=== PATIENT | male | born 1935 | race Caucasian/White ===

== ENCOUNTER 2016-09-29 20:38 | Inpatient (IN) | payer OTHER ==
[~2016-09-29] VITALS: Ht 180.3 cm; Wt 70.4 kg
[~2016-09-29 20:38] MED LIST: ARICEPT10 MG PO; ARICEPT5 MG PO; ASCORBIC ACID500 M3 PO; ASPIRIN E.C.81 M1 PO; ASPIRIN325 MG PO; CALCIUM CARB1 TABLET PO; DAILY MULTIPLE1 EACH PO; DOCUSATE SODIU100 MG PO; ENDOCET 5-3251 EACH PO; FLONASE16 G1 BOTH NARES; FLOVENT 44120 INHALA IH; IRON325 M1 PO; IRON45 MG PO; MEDROL DOSEPAK4 MG PO; SENNA-TIME S T1 EACH PO; SPIRIVA1 INHALATI IH
[2016-09-29 21:37] LABS: EOSINOPHIL (%) 1.3 % (0-5); EOSINOPHIL COUNT 0.1 K/uL (0-0.3); HEMATOCRIT 41.7 % (38.0-50.0); IMMATURE GRANULOCYTE (%) 0.5 % (0.0-0.7); IMMATURE GRANULOCYTE COUNT 0.1 K/uL; INSTRUMENT ABS NEUTROPHIL CT 8.5 K/uL; LYMPHOCYTE COUNT 1.7 K/uL (1.0-2.8); MCHC 32.9 G/DL (30.0-36.0); MCV 85.3 FL (86-99); MONOCYTE (%) 4.4 % (3-12); MONOCYTE COUNT 0.5 K/uL (0-0.8); NEUTROPHIL (%) 77.6 % (45-76); NEUTROPHIL COUNT 8.5 K/uL (1.8-6.4); PLATELET COUNT 267 K/uL (156-360); RBC DIS.WIDTH-SD 40.3 % (39-53); RED BLOOD COUNT 4.89 M/uL (4.00-5.50)
[2016-09-29 21:48] LABS: CHLORIDE 108 mEq/L (99-109); POTASSIUM 4.1 mEq/L (3.7-5.4); SODIUM 142 mEq/L (136-147)
[2016-09-29 21:50] LABS: GLUCOSE 144 mg/dL (70-99)
[2016-09-29 21:51] LABS: ANION GAP 10 MEQ/L (2-14)
[2016-09-29 21:53] LABS: GFR ESTIMATE (CALCULATED) 52 mL/min/
[2016-09-29 21:54] LABS: UREA NITROGEN (BUN) 28 mg/dL (9-23)
[2016-09-29] MEDS ORDERED: SPIRIVA1 INHALATI IH (22:20)
[2016-09-29] MEDS ORDERED: ASPIRIN325 MG PO (22:20)
[2016-09-29] MEDS ORDERED: DAILY VITAMIN1 EAC4 PO (22:21)
[2016-09-29] MEDS ORDERED: CELEXA10 MG PO (22:21)
[2016-09-29] MEDS ORDERED: ASMANEX HFA13 GM IH (22:21)
[2016-09-30] VITALS (7 sets, daily range): BP systolic 112–157; BP diastolic 61–80
[2016-09-30 08:22] LABS: EOSINOPHIL (%) 0 % (0-5); HEMATOCRIT 36.6 % (38.0-50.0); IMMATURE GRANULOCYTE (%) 0.5 % (0.0-0.7); IMMATURE GRANULOCYTE COUNT 0.1 K/uL; INSTRUMENT ABS NEUTROPHIL CT 10.7 K/uL; LYMPHOCYTE COUNT 1.3 K/uL (1.0-2.8); MCH 28.2 PG (29.0-34.0); MCHC 32.8 G/DL (30.0-36.0); MCV 86.1 FL (86-99); MEAN PLAT.VOLUME 9.3 uM^3 (9.0-12.4); MONOCYTE (%) 6.1 % (3-12); MONOCYTE COUNT 0.8 K/uL (0-0.8); NEUTROPHIL (%) 83.2 % (45-76); NEUTROPHIL COUNT 10.7 K/uL (1.8-6.4); PLATELET COUNT 260 K/uL (156-360); RBC DIS.WIDTH-CV 13.2 % (11.8-14.6); RBC DIS.WIDTH-SD 41.1 % (39-53); RED BLOOD COUNT 4.25 M/uL (4.00-5.50); WHITE BLOOD COUNT 12.9 K/uL (4.1-10.2)
[2016-09-30 08:45] LABS: ALKALINE PHOSPHATASE 68 IU/L (3-129); ANION GAP 7 MEQ/L (2-14); CHLORIDE 106 MEQ/L (99-109); GFR ESTIMATE (CALCULATED) 56 mL/min/; GLUCOSE 143 mg/dL (70-99); POTASSIUM 4.7 MEQ/L (3.7-5.4); SAMPLE HEMOLYSIS CHECK 0; SAMPLE ICTERIC CHECK 0; SAMPLE LIPEMIA CHECK 0; SODIUM 140 MEQ/L (136-147); TOTAL BILIRUBIN 0.5 MG/DL (0.0-1.0); UREA NITROGEN (BUN) 29 mg/dL (9-23)
[2016-10-01] VITALS (7 sets, daily range): BP systolic 120–154; BP diastolic 59–82
[2016-10-01 05:39] LABS: BASOPHIL COUNT 0.1 K/uL (0-0.1); EOSINOPHIL (%) 2.6 % (0-5); EOSINOPHIL COUNT 0.3 K/uL (0-0.3); HEMATOCRIT 35.8 % (38.0-50.0); IMMATURE GRANULOCYTE (%) 0.3 % (0.0-0.7); INSTRUMENT ABS NEUTROPHIL CT 8.8 K/uL; LYMPHOCYTE COUNT 2.2 K/uL (1.0-2.8); MCH 28.1 PG (29.0-34.0); MCHC 31.8 G/DL (30.0-36.0); MCV 88.4 FL (86-99); MEAN PLAT.VOLUME 9.5 uM^3 (9.0-12.4); MONOCYTE (%) 7.1 % (3-12); MONOCYTE COUNT 0.9 K/uL (0-0.8); NEUTROPHIL (%) 71.4 % (45-76); NEUTROPHIL COUNT 8.8 K/uL (1.8-6.4); PLATELET COUNT 230 K/uL (156-360); RBC DIS.WIDTH-CV 13.5 % (11.8-14.6); RBC DIS.WIDTH-SD 43.9 % (39-53); RED BLOOD COUNT 4.05 M/uL (4.00-5.50); WHITE BLOOD COUNT 12.3 K/uL (4.1-10.2)
[2016-10-01 06:06] LABS: ANION GAP 9 MEQ/L (2-14); CHLORIDE 108 MEQ/L (99-109); GFR ESTIMATE (CALCULATED) 56 mL/min/; GLUCOSE 131 mg/dL (70-99); POTASSIUM 4.2 MEQ/L (3.7-5.4); SAMPLE HEMOLYSIS CHECK 0; SAMPLE ICTERIC CHECK 0; SAMPLE LIPEMIA CHECK 0; SODIUM 142 MEQ/L (136-147); UREA NITROGEN (BUN) 31 mg/dL (9-23)
[2016-10-01 19:29] LABS: INTER. NORMALIZED RATIO 1.1; PROTHROMBIN TIME 11.2 (9.2-11.2)
[2016-10-02 00:19] VITALS: BP 126/70
[2016-10-02 00:47] LABS: BASE EXCESS -1.2 mEq/L (-3 to +3); BICARBONATE 22.2 mEq/L (22-26); CARBOXY HGB 2.4 % (0-5); COMMENTS - BLOOD GASES A+C+; DEVICE HFNC; METHEMOGLOBIN 1.5 % (0-1.5); O2 FLOW 10 L/MIN; PCO2 32 mm Hg (35-45); PO2 58 mm Hg (80-100); SITE RR; TOTAL RESP RATE 23 resp/min; pH 7.45 (7.35-7.45)
[2016-10-02 01:29] LABS: ADD MIUA? YES; BILIRUBIN NEGATIVE; BLOOD MODERATE; COLOR YELLOW ((YELLOW)); GLUCOSE (STRIP) NEGATIVE; KETONES 20; LEUKOCYTES LARGE; NITRITE NEGATIVE; PROTEIN (STRIP) 30; SPECIFIC GRAVITY 1.021 (1.000-1.030); UROBILINOGEN 0.2 MG/DL (0.2-1.0)
[2016-10-02 01:38] LABS: TROP-I INTERPRETATION NEGATIVE; TROPONIN-I 0.15 ng/mL (0.0-0.30)
[2016-10-02 02:27] LABS: WHITE BLOOD CELLS 20-30 /HPF (0-5)
[2016-10-02 02:28] LABS: BACTERIA 2+ /HPF; CASTS PRESENT /LPF; EPITHELIAL CELLS 1+ /HPF; HYALINE CASTS RARE /LPF; MUCUS 1+ /LPF; UCUL ADDED? YES
[2016-10-02 04:45] VITALS: BP 133/70
[2016-10-02 04:46] VITALS: BP 194/90
[2016-10-02 06:00] LABS: EOSINOPHIL (%) 0.6 % (0-5); EOSINOPHIL COUNT 0.1 K/uL (0-0.3); HEMATOCRIT 30.6 % (38.0-50.0); IMMATURE GRANULOCYTE (%) 0.3 % (0.0-0.7); INSTRUMENT ABS NEUTROPHIL CT 9.6 K/uL; LYMPHOCYTE COUNT 1.4 K/uL (1.0-2.8); MCH 27.8 PG (29.0-34.0); MCV 86.7 FL (86-99); MONOCYTE (%) 8.6 % (3-12); MONOCYTE COUNT 1.1 K/uL (0-0.8); NEUTROPHIL (%) 78.8 % (45-76); NEUTROPHIL COUNT 9.6 K/uL (1.8-6.4); PLATELET COUNT 207 K/uL (156-360); RBC DIS.WIDTH-CV 13.2 % (11.8-14.6); RBC DIS.WIDTH-SD 41.9 % (39-53); RED BLOOD COUNT 3.53 M/uL (4.00-5.50); WHITE BLOOD COUNT 12.2 K/uL (4.1-10.2)
[2016-10-02 06:11] LABS: INTER. NORMALIZED RATIO 1.2
[2016-10-02 06:21] LABS: ANION GAP 12 MEQ/L (2-14); CHLORIDE 106 MEQ/L (99-109); GFR ESTIMATE (CALCULATED) 52 mL/min/; GLUCOSE 130 mg/dL (70-99); SAMPLE HEMOLYSIS CHECK 0; SAMPLE ICTERIC CHECK 0; SAMPLE LIPEMIA CHECK 0; SODIUM 140 MEQ/L (136-147); UREA NITROGEN (BUN) 28 mg/dL (9-23)
[2016-10-02 07:41] VITALS: BP 98/55
[2016-10-02 15:23] LABS: BASE EXCESS 1.4 mEq/L (-3 to +3); BICARBONATE 24.2 mEq/L (22-26); CARBOXY HGB 2.6 % (0-5); METHEMOGLOBIN 1.1 % (0-1.5); PCO2 31 mm Hg (35-45); PO2 57 mm Hg (80-100)
[2016-10-02 15:24] LABS: SITE R RAD
[2016-10-02 15:25] LABS: COMMENTS - BLOOD GASES A+C+; DEVICE HFNC; O2 FLOW 8 L/MIN; TOTAL RESP RATE 18 resp/min
[2016-10-02 15:37] VITALS: BP 110/66
[2016-10-02 23:10] VITALS: BP 119/68
[2016-10-03 06:12] LABS: HEMATOCRIT 28.8 % (38.0-50.0); MCV 86.2 FL (86-99)
[2016-10-03 06:19] LABS: INTER. NORMALIZED RATIO 1.3; PROTHROMBIN TIME 13.7 (9.2-11.2)
[2016-10-03 07:55] VITALS: BP 120/68
[2016-10-03 15:47] VITALS: BP 126/67
[2016-10-03 23:34] VITALS: BP 112/62
[2016-10-04 05:46] LABS: HEMATOCRIT 25.8 % (38.0-50.0); MCH 28.2 PG (29.0-34.0); MCHC 32.9 G/DL (30.0-36.0); MCV 85.7 FL (86-99); MEAN PLAT.VOLUME 10.2 uM^3 (9.0-12.4); PLATELET COUNT 251 K/uL (156-360); RBC DIS.WIDTH-CV 13.1 % (11.8-14.6); RBC DIS.WIDTH-SD 40.8 % (39-53); RED BLOOD COUNT 3.01 M/uL (4.00-5.50); WHITE BLOOD COUNT 14.1 K/uL (4.1-10.2)
[2016-10-04 06:05] LABS: INTER. NORMALIZED RATIO 2.2
[2016-10-04 06:12] LABS: ANION GAP 10 MEQ/L (2-14); CHLORIDE 106 MEQ/L (99-109); GFR ESTIMATE (CALCULATED) > 59 mL/min/; GLUCOSE 153 mg/dL (70-99); POTASSIUM 3.5 MEQ/L (3.7-5.4); SAMPLE HEMOLYSIS CHECK 0; SAMPLE ICTERIC CHECK 0; SAMPLE LIPEMIA CHECK 0; SODIUM 143 MEQ/L (136-147); UREA NITROGEN (BUN) 33 mg/dL (9-23)
[2016-10-04 06:54] LABS: PROTHROMBIN TIME 22.5 (9.2-11.2)
[2016-10-04 08:00] VITALS: BP 148/76
[2016-10-04 16:02] VITALS: BP 113/63
[2016-10-04 23:45] VITALS: BP 137/73
[2016-10-05 05:26] LABS: MCHC 31.9 G/DL (30.0-36.0); MCV 87.9 FL (86-99); MEAN PLAT.VOLUME 9.7 uM^3 (9.0-12.4); PLATELET COUNT 309 K/uL (156-360); RBC DIS.WIDTH-CV 13.4 % (11.8-14.6); RED BLOOD COUNT 3.07 M/uL (4.00-5.50); WHITE BLOOD COUNT 13.3 K/uL (4.1-10.2)
[2016-10-05 05:41] LABS: INTER. NORMALIZED RATIO 3.7; PROTHROMBIN TIME 39.3 (9.2-11.2)
[2016-10-05 05:51] LABS: ANION GAP 13 MEQ/L (2-14); CHLORIDE 108 MEQ/L (99-109); GFR ESTIMATE (CALCULATED) > 59 mL/min/; GLUCOSE 126 mg/dL (70-99); POTASSIUM 3.8 MEQ/L (3.7-5.4); SAMPLE HEMOLYSIS CHECK 0; SAMPLE ICTERIC CHECK 0; SAMPLE LIPEMIA CHECK 0; SODIUM 146 MEQ/L (136-147); UREA NITROGEN (BUN) 34 mg/dL (9-23)
[2016-10-05 07:47] VITALS: BP 132/74
[2016-10-05] MEDS ORDERED: PREDNISONE10 MG PO (09:10)
[2016-10-05] MEDS ORDERED: WARFARIN SODIUM1 MG PO (09:59)
[2016-10-05 10:33] VITALS: BP 134/70
== END 2016-10-05 13:08 | DRG 480 ==
LOC: EME → EDBD 20:38 → 3EAST 22:16 → EDOF 22:16 → 3EAST 23:55
PROVIDERS: Emergency Medicine; Hospitalist; Internal Medicine; Orthopaedic Surgery Hand Surgery; Physician Assistant; Student in an Organized Health Care Education/Training Program
PROC: 0SH934Z Insertion of Internal Fixation Device into Right Hip Joint, Percutaneous Approach (ICD-10-PCS; principal; 2016-10-01)
PROC: 5A09357 Assistance with Respiratory Ventilation, Less than 24 Consecutive Hours, Continuous Positive Airway Pressure (ICD-10-PCS; 2016-10-03)
DX: S72.141A Displaced intertrochanteric fracture of right femur, initial encounter for closed fracture (principal); J96.01 Acute respiratory failure with hypoxia; J44.1 Chronic obstructive pulmonary disease with (acute) exacerbation; N39.0 Urinary tract infection, site not specified; J98.11 Atelectasis; F02.80 Dementia in other diseases classified elsewhere, unspecified severity, without behavioral disturbance, psychotic disturbance, mood disturbance, and anxiety; G30.9 Alzheimer's disease, unspecified; Y92.009 Unspecified place in unspecified non-institutional (private) residence as the place of occurrence of the external cause; E78.5 Hyperlipidemia, unspecified; Z87.891 Personal history of nicotine dependence; Z66 Do not resuscitate; Z51.5 Encounter for palliative care
CPT/HCPCS: 36600; 71010; 73501; 73502; 76000; 78582; 80048; 80053; 81003; 82803; 83605; 83880; 84484; 85014; 85018; 85025; 85027; 85610; 86850; 86900; 86901; 87040; 87070; 87077; 87086; 87186; 87205; 92526 GN; 92610 GN; 93005; 94640; 94640 76; 94799; 97530 GP; 99202; 99281; 99285; A9540; A9567; C1713; J0690; J0696; J1100; J1940; J1956; J2270; J2920; J2930; J3010; J3370; J7030; J7050; J7120